=== PATIENT | male | born 1985 | race Caucasian/White ===

== ENCOUNTER 2020-09-06 09:42 | Outpatient (CLI) | payer OTHER ==
--- NOTE | 2020-09-06 10:15 | RAD ---
EXAM: 3 views of the right wrist HISTORY: Wrist pain COMPARISON: None FINDINGS: 3 views of the right wrist shows no evidence of acute fracture or dislocation. No soft tiss ue swelling is seen. No degenerative changes are present. IMPRESSION: No evidence of acute osseous abnormality.
== END 2020-09-06 09:43 | disposition home or self-care (01) ==
LOC: BICRAD 09:42
PROVIDERS: ATTEND Family Medicine
DX: M25.531 Pain in right wrist (principal)